=== PATIENT | female | born 1975 | race Caucasian/White ===

== ENCOUNTER → 2017-08-04 | Outpatient (CLI) | payer OTHER ==
--- NOTE | 2017-08-04 13:35 | XR ---
EXAMINATION TYPE: XR shoulder complete RT DATE OF EXAM: 08/04/2017 COMPARISON: NONE HISTORY: Pain TECHNIQUE: Three views are submitted. FINDINGS: The osseous structures are intact. There is no acute fracture or dislocation. The AC joint is maint ained. IMPRESSION: 1. No acute process.
--- NOTE | 2017-08-05 22:01 | MR ---
EXAMINATION TYPE: MR shoulder RT wo con DATE OF EXAM: 08/04/2017 COMPARISON: Radiograph 08/04/2017 HISTORY: 41-year-old female Rotator cuff tear/arthropathy, pain. TECHNIQUE: Multiplanar, multisequence imaging of the right shoulder is performed without contrast. FINDINGS: Lung and biceps tendon shows some mild intrasubstance signal within the intracapsular portion and bec omes diminutive at the junction with the extracapsular portion. This seems to be slight medial sublux ation along the upper bicipital groove. There is partial tear of the superior third fibers of the subscapularis tendon. The majority of the s ubscapularis tendon remains intact. The AC joint is intact. There is mild bursal sided fraying of the supraspinatus tendon. No deep partial or full-thickness tea r of either supraspinatus or infraspinatus tendons. No rotator cuff muscle atrophy. There is a mild effusion in the subacromial/subdeltoid bursa. There is some increased signal within the coracohumeral ligament. The superior glenohumeral ligament is not well seen. Prominent fluid in the region of the rotator cuff interval extending to the superio r subscapularis recess. Evaluation of the glenohumeral joint shows maintained articular cartilage. No discrete labral tear gi shannan on the radiographic technique and no para labral cyst. No Hill-Sachs deformity or os acromiale. Patchy red marrow is present and can be seen in the setting of anemia, obesity, smoking, and chronic disease. IMPRESSION: 1. Partial-thickness tear of the superior most subscapularis tendon fibers. The majority of the subsc apularis tendon remains intact. 2. Mild bursal sided fraying of the supraspinatus tendon. No high-grade partial or full-thickness tea r of either supraspinatus or infraspinous tendons. 3. Findings suggest sprain of the coracohumeral ligament given intrinsic fluid signal. The superior g lenohumeral ligament is not apparent. Consider rotator interval sprain. A tear here could be a potent ial explanation for fluid in the subacromial/subdeltoid bursa. Bursitis would be an alternative expla nation. 4. Intracapsular long head biceps tendinosis.
== END | disposition home or self-care (01) ==
LOC: RADMRIMAIN 12:59
PROVIDERS: ATTEND Physical Medicine & Rehabilitation
DX: M12.811 Other specific arthropathies, not elsewhere classified, right shoulder (principal); S46.811A Strain of other muscles, fascia and tendons at shoulder and upper arm level, right arm, initial encounter; M75.21 Bicipital tendinitis, right shoulder; M67.813 Other specified disorders of tendon, right shoulder

== ENCOUNTER → 2022-03-04 | Outpatient (CLI) | payer OTHER | END | disposition home or self-care (01) | LOC: LABWHC1 08:11 | PROVIDERS: ATTEND Psychiatry & Neurology Neurology | DX: R90.82 White matter disease, unspecified (principal) | CPT/HCPCS: 36415; 82040; 82042; 82784; 83916 ==

== ENCOUNTER 2022-12-05 12:07 | Emergency (ER) | payer OTHER ==
[2022-12-05 12:21] VITALS: RESP 18
[2022-12-05] MEDS ORDERED: CYCLOBENZAPRINE 5 MG TAB PO STA (12:31)
[2022-12-05] MEDS ORDERED: KETOROLAC 15 MG/ML 1 ML VIAL IM STA (12:31)
[2022-12-05] MEDS ORDERED: LIDOCAINE 5% PATCH TOPICAL STA (12:32)
--- NOTE | 2022-12-05 13:09 | XR ---
EXAMINATION TYPE: XR lumbosacral spine min 4V DATE OF EXAM: 12/05/2022 COMPARISON: None HISTORY: Pain TECHNIQUE: 5 view lumbar spine FINDINGS: There are 5 lumbar-type vertebral bodies. The pedicles are intact. There appears to be prio r intervention at the L5-S1 level. No spondylolytic defects are evident. Facets are otherwise normal. Remaining disc heights are preserved. Vertebral body heights are preserved. IMPRESSION: 1. Postsurgical changes L5-S1 in otherwise normal appearing lumbar spine.
[2022-12-05] MEDS ORDERED: HYDROmorphone 0.5 MG/0.5 ML SYRINGE IM STA (14:09)
[2022-12-05] MEDS ORDERED: ONDANSETRON 4 MG ODT STARTER PACK 2 TAB BTL PO STA (15:39)
--- NOTE | 2022-12-05 15:42 | ED ---
Back Pain HPI - General Chief Complaint: Back Pain/Injury Stated Complaint: Back pain Time Seen by Provider: 12/05/22 12:24 Source: patient Limitations: no limitations - History of Present Illness Initial Comments: Patient is a 47-year-old female presents to the emergency department for back pain. It started yesterday when patient woke up. She denies injury. She took her home prescription of morphine without relief. Pain worse with movement. There is no radiation. No numbness or tingling. No loss of bowel or bladder function. Patient has history of chronic back pain but states this is much worse She had a laminectomy several years ago. - Related Data Previous Rx's Medication Instructions Recorded Cyclobenzaprine [Flexeril] 10 mg PO TID PRN #15 tab 12/05/22 Ibuprofen [Motrin] 800 mg PO Q8HR PRN #30 tab 12/05/22 Allergies Allergy/AdvReac Type Severity Reaction Status Date / Time No Known Allergies Allergy Verified 12/05/22 12:21 Review of Systems ROS Statement: Those systems with pertinent positive or pertinent negative responses have been documented in the HPI. ROS Other: All systems not noted in ROS Statement are negative. Past Medical History Past Medical History: Fibromyalgia, Musculoskeletal Disorder Additional Past Medical History / Comment(s): lupus, MS, DDD History of Any Multi-Drug Resistant Organisms: None Reported Additional Past Surgical History / Comment(s): back surgeries, brain malformation surgery in 2017 Past Psychological History: No Psychological Hx Reported Smoking Status: Current every day smoker Past Alcohol Use History: Rare Past Drug Use History: None Reported General Exam Limitations: no limitations General appearance: alert, in no apparent distress Respiratory exam: Present: normal lung sounds bilaterally. Absent: respiratory distress, wheezes, rales, rhonchi, stridor Cardiovascular Exam: Present: regular rate, normal rhythm, normal heart sounds. Absent: systolic murmur, diastolic murmur, rubs, gallop, clicks Back exam: Present: normal inspection, full ROM, vertebral tenderness (lumbar ) Neurological exam: Present: alert, oriented X3, CN II-XII intact Expanded Sensory exam: Upper Extremity Light Touch: Normal, Lower Extremity Light Touch: Normal Motor strength exam: RUE: 5, LUE: 5, RLE: 5, LLE: 5 Psychiatric exam: Present: normal affect, normal mood Skin exam: Present: warm, dry, intact, normal color. Absent: rash Course Vital Signs 12/05/22 12/05/22 12/05/22 12:17 13:59 16:04 Temperature 98.5 F 98 F 97.6 F Pulse Rate 98 95 80 Respiratory 18 18 18 Rate Blood Pressure 140/93 146/95 138/92 O2 Sat by Pulse 98 98 100 Oximetry Medical Decision Making - Medical Decision Making Was pt. sent in by a medical professional or institution (, PA, HAND[employer]AG [employer] C[employer]TER, urgent care, hospital, or halfway...) When possible be specific @ -No Did you speak to anyone other than the patient for history (EMS, parent, family, police, friend...)? What history was obtained from this source @ -No Did you review nursing and triage notes (agree or disagree)? Why? @ -I reviewed and agree with nursing and triage notes Were old charts reviewed (outside hosp., previous admission, EMS record, old EKG, old radiological studies, urgent care reports/EKG's, halfway records)? Report findings @ -No old charts were reviewed Differential Diagnosis (chest pain, altered mental status, abdominal pain women, abdominal pain men, vaginal bleeding, weakness, fever, dyspnea, syncope, headache, dizziness, GI bleed, back pain, seizure, CVA, palpatations, mental health)? @ -Differential Back Pain: Strain, zoster, cauda equina syndrome, epidural abscess, vertebral osteomyelitis, discitis, fracture, subluxation, disc herniation, DJD, spinal stenosis, dissection, AAA, pancreatitis, peptic ulcer disease, pyelonephritis, kidney stone, this is not meant to be an all-inclusive list. EKG interpreted by me (3pts min.). @ -None X-rays interpreted by me (1pt min.). @ -No acute fracture CT interpreted by me (1pt min.). @ -None done U/S interpreted by me (1pt. min.). @ -None done What testing was considered but not performed or refused? (CT, X-rays, U/S, labs)? Why? @ -None What meds were considered but not given or refused? Why? @ -None Did you discuss the management of the patient with other professionals (professionals i.e. , PA, [employer] C[employer]TER, lab, RT, psych nurse, social professionals, bank teller, teacher, air [employer] senior officer, case managers)? Give summary @ -No Was smoking cessation discussed for >3mins.? @ -No Was critical care preformed (if so, how long)? @ -No Were there social determinants of health that impacted care today? How? (Homelessness, low income, unemployed, alcoholism, drug addiction, transportation, low edu. Level, literacy, decrease access to med. care, nursing home, rehab)? @ -No Was there de-escalation of care discussed even if they declined (Discuss DNR or withdrawal of care, Hospice)? DNR status @ -No What co-morbidities impacted this encounter? (DM, HTN, Smoking, COPD, CAD, Cancer, CVA, ARF, Chemo, Hep., AIDS, mental health diagnosis, sleep apnea, morbid obesity)? @ -Chronic back pain Was patient admitted / discharged? Hospital course, mention meds given and route, prescriptions, significant lab abnormalities, going to OR and other pertinent info. @ -Patient presented with lower back pain. No injury. No neurological deficit on exam. Due to midline tenderness x-ray was obtained and interpreted by myself/radiology which showing no acute fracture. Pain poorly controlled with Toradol, Flexeril, lidocaine patch. One dose of Dilaudid was given with some relief. Patient in stable medical condition for discharge. She is referred to find specialist today. Undiagnosed new problem with uncertain prognosis? @ -No Drug Therapy requiring intensive monitoring for toxicity (Heparin, Nitro, Insulin, Cardizem)? @ -No Were any procedures done? @ -No Diagnosis/symptom? @ Mechanical back pain Acute, or Chronic, or Acute on Chronic? @ -Acute Uncomplicated (without systemic symptoms) or Complicated (systemic symptoms)? @ -Uncomplicated Side effects of treatment? @ -No Exacerbation, Progression, or Severe Exacerbation? @ -No Poses a threat to life or bodily function? How? (Chest pain, USA, PA, pneumonia, PE, COPD, DKA, ARF, appy, cholecystitis, CVA, Diverticulitis, Homicidal, Suicidal, threat to staff... and all critical care pts) @ -[No] Dr. Handy is my attending Disposition Clinical Impression: Mechanical back pain Disposition: HOME SELF-CARE Condition: Good Instructions (If sedation given, give patient instructions): Acute Low Back Pain (ED) Additional Instructions: Take medication as directed. You can alternate Motrin with home prescription of morphine for pain. Do not drink alcohol or operate machinery while taking Flexeril as it can cause drowsiness. Follow-up with human resources specialist in 1-2 days. Return to the emergency department if you experience new, concerning, or worsening symptoms. Prescriptions: Cyclobenzaprine [Flexeril] 10 mg PO TID PRN #15 tab PRN Reason: Muscle Spasm Ibuprofen [Motrin] 800 mg PO Q8HR PRN #30 tab PRN Reason: Pain Is patient prescribed a controlled substance at d/c from ED?: No Referrals: None,Stated [Primary Care Provider] - 1-2 days Pierre Tirado DO [Doctor of Osteopathic Medicine] - 1-2 days
[2022-12-05 16:06] VITALS: BP 138/92; PULSE 80; TEMP 97.6
== END 2022-12-05 16:06 | disposition home or self-care (01) ==
LOC: EC 12:07
DX: M54.50 Low back pain, unspecified (principal); F17.200 Nicotine dependence, unspecified, uncomplicated
CPT/HCPCS: 72110; 99284; 96372 ×2; J1885; S0119; J1170

== ENCOUNTER → 2023-01-14 | Outpatient (CLI) | payer OTHER | END | disposition home or self-care (01) | LOC: LABWHC1 09:42 | PROVIDERS: ATTEND Psychiatry & Neurology Neurology | DX: Z01.818 Encounter for other preprocedural examination (principal) | CPT/HCPCS: 36415; 93005 ==